=== PATIENT | female | born 1965 | race African-American/Black ===

== ENCOUNTER 2016-10-21 15:49 | Emergency (ER) | payer OTHER ==
[~2016-10-21] VITALS: Ht 180.3 cm; Wt 130.4 kg
[~2016-10-21 15:49] MED LIST: BACTRIM; CEPH250 PO; DSS100 PO; FERR325C PO; GAS-X; HYDR-3705 PO; IBUP-1681 PO; LEVO100 PO; MILK OF MAGNESIA; NAPR220C15 PO; NOCURR; OMEP10 PO; PANT40TA25 PO; SULF-168 PO; TRAM50TA4 PO; [UNRECOGNIZED DRUG - REMARK]
[2016-10-21 17:20] VITALS: BP 129/86
== END 2016-10-21 17:39 | disposition home or self-care (01) ==
LOC: EMS 15:53
DX: M79.661 Pain in right lower leg (principal); I10 Essential (primary) hypertension; F17.210 Nicotine dependence, cigarettes, uncomplicated; N28.9 Disorder of kidney and ureter, unspecified; E66.9 Obesity, unspecified; Z68.41 Body mass index [BMI] 40.0-44.9, adult; Z88.5 Allergy status to narcotic agent
CPT/HCPCS: 93971; 99284

== ENCOUNTER 2020-05-22 17:56 | Emergency (ER) | payer OTHER ==
[~2020-05-22] VITALS: Ht 180.3 cm; Wt 145.4 kg
[~2020-05-22 17:56] MED LIST changes: -BACTRIM; -CEPH250 PO; -GAS-X; -HYDR-3705 PO; -IBUP-1681 PO; -MILK OF MAGNESIA; -NAPR220C15 PO; -NOCURR; -OMEP10 PO; +PANT-31 PO; -PANT40TA25 PO; -SULF-168 PO; -TRAM50TA4 PO; -[UNRECOGNIZED DRUG - REMARK]
[2020-05-22 20:56] LABS: BASOPHILS % (AUTO) 0.6 % (0.0-2.0); EOSINOPHILS % (AUTO) 6.2 % (1.0-6.0); HEMATOCRIT 36.9 % (36-46); HEMOGLOBIN 11.8 g/dL (12.0-16.0); LYMPHOCYTES # (AUTO) 2.1 K/uL (1.0-4.8); LYMPHOCYTES % (AUTO) 34.3 % (22.0-44.0); MEAN CORPUSCULAR HEMOGLOBIN 27.4 pg (26.0-34.0); MEAN CORPUSCULAR HGB CONC 31.9 G/dL (31.0-37.0); MEAN CORPUSCULAR VOLUME 86 fL (80-100); MONOCYTES # (AUTO) 0.3 K/uL (0.1-1.0); MONOCYTES % (AUTO) 5.7 % (2.0-9.0); NEUTROPHILS # (AUTO) 3.2 K/uL (1.8-7.7); NEUTROPHILS % (AUTO) 53.2 % (40.0-70.0); PLATELET COUNT (AUTO) 245 K/uL (150-450); RED BLOOD CELL COUNT(AUTO) 4.29 MIL/uL (4.00-5.20); RED CELL DISTRIBUTION WIDTH 16.8 % (11.5-14.5)
[2020-05-22 21:23] LABS: CALCIUM, TOTAL 8.7 mg/dL (8.8-10.5); CREATININE 1.89 mg/dL (0.60-1.30); POTASSIUM 3.8 mmol/L (3.5-5.1)
[2020-05-22 21:29] LABS: ALBUMIN 3.1 g/dL (3.4-5.0); BILIRUBIN,TOTAL 0.2 mg/dL (0.1-1.0); C-REACTIVE PROTEIN QUANT 1.72 mg/dL (0.00-0.30); TOTAL PROTEIN, SERUM 7.7 g/dL (6.4-8.2)
[2020-05-22 22:37] LABS: ERYTHROCYTE SEDIMENTATION RATE 37 MM/HR (0-20)
[2020-05-23] MEDS ORDERED: HYDROCODONE/ACETAMINOPHEN 5-325 MG TABLET PO ONE (00:15)
[2020-05-23 00:40] VITALS: BP 142/68
== END 2020-05-23 00:41 | disposition home or self-care (01) ==
LOC: EMS 17:56
DX: M71.21 Synovial cyst of popliteal space [Baker], right knee (principal); F17.210 Nicotine dependence, cigarettes, uncomplicated; Z79.899 Other long term (current) drug therapy
CPT/HCPCS: 84550; 85379; 85651; 86140; 93971; 99284; 99285

== ENCOUNTER 2020-12-29 09:30 | Day surgery (SDC) | payer OTHER ==
[2020-12-28 14:26] LABS: COVID AG,FIA SOURCE NASOPHARYNGEAL
[~2020-12-29] VITALS: Ht 180.3 cm; Wt 152.3 kg
[~2020-12-29 09:30] MED LIST changes: +ATEN-72 PO; +CHOL-35 PO; -DSS100 PO; -FERR325C PO; +HYDR-4072 PO; -LEVO100 PO; +LEVO75 PO; -PANT-31 PO; +SODIUM CHLORIDE 0.9% 1,000 ML IV ONE; +SODIUM CHLORIDE 0.9% 1,000 ML ONE
[2020-12-29] MEDS ORDERED: PROPOFOL 1% 20 ML VIAL IVP ONE (12:00)
== END 2020-12-29 13:00 | disposition home or self-care (01) ==
LOC: SURGERY 09:30
PROVIDERS: ATTEND Student in an Organized Health Care Education/Training Program
DX: D50.9 Iron deficiency anemia, unspecified (principal); K64.8 Other hemorrhoids; K64.4 Residual hemorrhoidal skin tags; I12.9 Hypertensive chronic kidney disease with stage 1 through stage 4 chronic kidney disease, or unspecified chronic kidney disease; F41.9 Anxiety disorder, unspecified; N18.30 Chronic kidney disease, stage 3 unspecified; Z79.899 Other long term (current) drug therapy; Z98.890 Other specified postprocedural states; Z87.891 Personal history of nicotine dependence; Z90.710 Acquired absence of both cervix and uterus; Z88.6 Allergy status to analgesic agent
CPT/HCPCS: 45378; 87426; 93005; C9803; J2704; J7030